=== PATIENT | male | born 1990 | race African-American/Black ===

== ENCOUNTER 2016-12-04 22:55 | Emergency (ER) | payer SELFPAY ==
[2016-12-05] MEDS ORDERED: KETOROLAC TROMETHAMINE INJ/PF 30 MG/1 ML SDV IV ONE (01:37)
[2016-12-05] MEDS ORDERED: DIPHENHYDRAMINE HCL 50 MG/ML VIAL IV ONE (01:38)
[2016-12-05] MEDS ORDERED: PROCHLORPERAZINE EDISYLATE INJ 10 MG/2 ML VIAL IV ONE (01:38)
--- NOTE | 2016-12-05 03:30 | ER Document Report ---
ED General - General Chief Complaint: Headache Stated Complaint: HEADACHE Time Seen by Provider: 12/05/16 01:37 Notes: Patient is a 26-year-old male with past medical history of migraine headaches who presents with 2 days of a bitemporal, constant, throbbing, severe headache. Patient states the headache was gradual in onset and got progressively worse from that time. He has had similar headaches in the past. Notes associated vomiting, photophobia and phonophobia. He has tried naproxen and ibuprofen at home without resolution of his symptoms. He has not seen a primary care doctor regarding today's concerns. He denies any neck pain, fever or altered mental status. No focal weakness or numbness. TRAVEL OUTSIDE OF THE [place] IN LAST 30 DAYS: No - Related Data Allergies/Adverse Reactions: No Known Allergies Allergy (Unverified 12/17/15 19:05) Past Medical History - General Information source: Patient - Social History Smoking Status: Current Every Day Smoker Chew tobacco use (# tins/day): No Frequency of alcohol use: None Drug Abuse: None Lives with: Spouse/Significant other Family History: Reviewed & Not Pertinent Patient has suicidal ideation: No Patient has homicidal ideation: No Renal/ Medical History: Denies: Hx Peritoneal Dialysis Past Surgical History: Reports: Hx Abdominal Surgery - hernia, Hx Herniorrhaphy - Immunizations Immunizations up to date: Yes Hx Diphtheria, Pertussis, Tetanus Vaccination: Yes Review of Systems - Review of Systems Notes: Constitutional: Negative for fever. HENT: Negative for sore throat. Eyes: Negative for visual changes. Cardiovascular: Negative for chest pain. Respiratory: Negative for shortness of breath. Gastrointestinal: Negative for abdominal pain, vomiting or diarrhea. Genitourinary: Negative for dysuria. Musculoskeletal: Negative for back pain. Skin: Negative for rash. Neurological: Positive for headaches, negative for weakness or numbness. 10 point ROS negative except as marked above and in HPI. Physical Exam - Vital signs Vitals: Temp Pulse Resp BP Pulse Ox 98.7 F 56 L 16 115/54 L 97 12/04/16 23:20 12/04/16 23:20 12/04/16 23:20 12/04/16 23:20 12/04/16 23:20 Interpretation: Bradycardic Notes: PHYSICAL EXAMINATION: GENERAL: Well-appearing, well-nourished and in no acute distress. HEAD: Atraumatic, normocephalic. EYES: Pupils equal round and reactive to light, extraocular movements intact, sclera anicteric, conjunctiva are normal. ENT: nares patent, oropharynx clear without exudates. Moist mucous membranes. NECK: Normal range of motion, supple without lymphadenopathy LUNGS: Breath sounds clear to auscultation bilaterally and equal. No wheezes rales or rhonchi. HEART: Regular rate and rhythm without murmurs ABDOMEN: Soft, nontender, normoactive bowel sounds. No guarding, no rebound. No masses appreciated. EXTREMITIES: Normal range of motion, no pitting or edema. No cyanosis. NEUROLOGICAL: Face symmetric. Tongue protrudes midline. Extraocular motions intact. Pupils are 2 mm and equally reactive. Normal speech, normal gait. 5 out of 5 strength in both the distal and proximal upper and lower extremities bilaterally. Sensation is grossly intact throughout. Finger to nose testing normal. Pronator drift normal. PSYCH: Normal mood, normal affect. SKIN: Warm, Dry, normal turgor, no rashes or lesions noted. Course - Re-evaluation Re-evalutation: 12/05/16 03:27 Presentation of a headache that appears to be most consistent with tension versus migrainous type headache. Headache was not maximal in onset, patient has no focal neurologic deficits, no nuchal rigidity, vital signs within normal limits, no papilledema, and patient is overall well in appearance. Based on clinical history and examination I do not suspect an acute subarachnoid hemorrhage, dural venous sinus thrombosis, acute meningitis, or intercranial mass. Given my low clinical suspicion for any acute life-threatening etiology, I do not feel advanced neuro imaging or laboratory testing is indicated at this time. Patient has had complete resolution of his headache after a migraine cocktail. At this time will discharge with return precautions and follow-up recommendations. Verbal discharge instructions given a the bedside and opportunity for questions given. Medication warnings reviewed. Patient is in agreement with this plan and has verbalized understanding of return precautions and the need for primary care follow-up in the next 24-72 hours. - Vital Signs Vital signs: Temp Pulse Resp BP Pulse Ox 98.7 F 56 L 16 115/54 L 97 12/04/16 23:20 12/04/16 23:20 12/04/16 23:20 12/04/16 23:20 12/04/16 23:20 Discharge - Discharge Clinical Impression: Migraine headache Qualifiers: Migraine type: unspecified Status migrainosus presence: with status migrainosus Intractability: not intractable Qualified Code(s): G43.901 - Migraine, unspecified, not intractable, with status migrainosus Condition: Good Disposition: HOME, SELF-CARE Additional Instructions: You were seen today for a migraine headache. Please follow-up with your primary care doctor regarding today's ED visit. Return to emergency department immediately if you develop a headache that gets to its maximum severity within 20 minutes of onset, you pass out, you develop weakness, numbness, changes in your vision, become unable to keep any fluids down for more than 12 hours, or develop a fever greater than 100.4 degrees Fahrenheit. If you develop a similar migraine headache in the future I recommend that you immediately take 600 mg of ibuprofen and 50 mg of Benadryl and go to sleep as quickly as possible. This can often prevent your migraine headache from becoming severe.
[2016-12-05 03:38] VITALS: BP 109/49
== END 2016-12-05 03:41 | disposition home or self-care (01) ==
LOC: ER 22:55
DX: G43.901 Migraine, unspecified, not intractable, with status migrainosus (principal); R11.10 Vomiting, unspecified; H53.149 Visual discomfort, unspecified; R00.1 Bradycardia, unspecified; F17.200 Nicotine dependence, unspecified, uncomplicated
CPT/HCPCS: 99283; 96374; 96375; J1200; J1885; J0780

== ENCOUNTER 2017-05-23 00:53 | Emergency (ER) | payer SELFPAY ==
[2017-05-23 00:59] VITALS: BP 122/66
--- NOTE | 2017-05-23 01:26 | ER Document Report ---
HPI - HPI Patient complains to provider of: Punched a wall Onset: Yesterday - Evening Onset/Duration: Sudden Pain Level: 3 Context: 27-year-old male punched a wall with his right hand because he was an argument with his significant other. He is complaining of pain over the fourth and fifth MP C joint and over the lateral carpal. No previous injury. Associated Symptoms: None Exacerbated by: Movement Relieved by: Denies - ROS ROS below otherwise negative: Yes Systems Reviewed and Negative: Yes All other systems reviewed and negative Past Medical History - General Information source: Patient - Social History Smoking Status: Never Smoker Frequency of alcohol use: None Drug Abuse: None Lives with: Spouse/Significant other Family History: Reviewed & Not Pertinent - Medical History Medical History: Negative Renal/ Medical History: Denies: Hx Peritoneal Dialysis Past Surgical History: Reports: Hx Abdominal Surgery - hernia, Hx Herniorrhaphy - Immunizations Immunizations up to date: Yes Hx Diphtheria, Pertussis, Tetanus Vaccination: Yes Vertical Provider Document - CONSTITUTIONAL Agree With Documented VS: Yes Exam Limitations: No Limitations General Appearance: No Apparent Distress - INFECTION CONTROL TRAVEL OUTSIDE OF THE [place] IN LAST 30 DAYS: No - HEENT HEENT: Normocephalic - NECK Neck: Supple - RESPIRATORY O2 Sat by Pulse Oximetry: 100 - MUSCULOSKELETAL/EXTREMETIES Musculoskeletal/Extremeties: FROM, Tender, Eccymosis - mild over 4th, 5th MCP joints and lateral dorasl hand over carpal Notes: no rotational deviation - NEURO Level of Consciousness: Awake, Alert Motor/Sensory: No Motor Deficit, No Sensory Deficit - DERM Integumentary: Warm, Dry Course - Re-evaluation Re-evalutation: 05/23/17 01:46 Prelim x-ray is negative he will call me in about an hour for the results. 05/23/17 04:03 final xray report is negative. - Vital Signs Vital signs: Temp Pulse Resp BP Pulse Ox 98.6 F 70 16 122/66 100 05/23/17 00:58 05/23/17 00:58 05/23/17 00:58 05/23/17 00:58 05/23/17 00:58 Discharge - Discharge Clinical Impression: Right hand contusion Condition: Good Disposition: HOME, SELF-CARE Instructions: Acetaminophen, Contusion ([facility]), Use of Pyld-Ump-Qanfueh Ibuprofen ([facility]) Additional Instructions: to er any concerns the xray is negative for fracture Forms: Return to Work
--- NOTE | 2017-05-23 02:01 | RADIOLOGY REPORT (SQ) ---
EXAM DESCRIPTION: HAND RIGHT 3 VIEWS CLINICAL HISTORY: injury. Pain. COMPARISON: None. FINDINGS: 3 views of the right hand. Normal osseous mineralization. No acute fracture or dislocation. IMPRESSION: No acute fracture or dislocation.
== END 2017-05-23 02:10 | disposition home or self-care (01) ==
LOC: ER 00:53
DX: S60.221A Contusion of right hand, initial encounter (principal); M79.641 Pain in right hand; W22.01XA Walked into wall, initial encounter
CPT/HCPCS: 99283

== ENCOUNTER 2017-12-04 18:16 | Emergency (ER) | payer SELFPAY ==
--- NOTE | 2017-12-04 18:32 | ER Document Report ---
ED Flu Like - General Chief Complaint: Flu Symptoms Stated Complaint: VOMITING, COUGH, BODY ACHES Time Seen by Provider: 12/04/17 18:25 TRAVEL OUTSIDE OF THE [place] IN LAST 30 DAYS: No - Related Data Allergies/Adverse Reactions: No Known Allergies Allergy (Verified 12/04/17 18:30) Past Medical History - Social History Smoking Status: Current Every Day Smoker Chew tobacco use (# tins/day): No Frequency of alcohol use: None Drug Abuse: None Family History: Reviewed & Not Pertinent Patient has suicidal ideation: No Patient has homicidal ideation: No Renal/ Medical History: Denies: Hx Peritoneal Dialysis Past Surgical History: Reports: Hx Abdominal Surgery - hernia, Hx Herniorrhaphy - Immunizations Immunizations up to date: Yes Hx Diphtheria, Pertussis, Tetanus Vaccination: Yes Physical Exam - Vital signs Vitals: Temp Pulse Resp BP Pulse Ox 101.3 F H 78 24 H 131/53 H 100 12/04/17 18:23 12/04/17 18:23 12/04/17 18:23 12/04/17 18:23 12/04/17 18:23 Course - Vital Signs Vital signs: Temp Pulse Resp BP Pulse Ox 101.3 F H 78 24 H 131/53 H 100 12/04/17 18:23 12/04/17 18:23 12/04/17 18:23 12/04/17 18:23 12/04/17 18:23
[2017-12-04] MEDS ORDERED: ONDANSETRON 4 MG TAB.RAPDIS PO ONE (18:33)
[2017-12-04] MEDS ORDERED: NORMAL SALINE 1000 ML 1,000 ML IV ONE (18:33)
--- NOTE | 2017-12-04 18:33 | ER Document Report ---
ED Medical Screen (RME) - General Chief Complaint: Flu Symptoms Stated Complaint: VOMITING, COUGH, BODY ACHES Time Seen by Provider: 12/04/17 18:25 Mode of Arrival: Ambulatory Information source: Patient Notes: 27-year-old male with complaints of 2-3 days of fevers, sore throat, headache, body aches, cough, and vomiting. Patient states he has vomited up everything he tries to eat and drink over the last 2 or 3 days. Patient states he is taking ibuprofen for the fever but denies taking any other medications. I have greeted and performed a rapid initial assessment of this patient. A comprehensive ED assessment and evaluation of the patient, analysis of test results, and completion of the medical decision making process will be conducted by additional ED providers. Review of systems: Positive for fevers, generalized body aches, sore throat, headache, cough, vomiting. Physical Exam: General: Alert, appears mildly uncomfortable. HEENT: Normocephalic. Atraumatic. PERRLA. Extraocular movements intact. Oropharynx clear. Posterior oropharynx erythema and tonsillar hypertrophy. Neck: Supple. Respiratory: No respiratory distress. Dry cough. Clear and equal breath sounds bilaterally. Abdominal: Normal Inspection. No distension. Extremities: Moves all four extremities. Neurological: Normal cognition. AAOx4. Normal speech. Psychological: Normal affect. Normal Mood. Skin: Warm. Dry. Normal color. TRAVEL OUTSIDE OF THE [place] IN LAST 30 DAYS: No - Related Data Allergies/Adverse Reactions: No Known Allergies Allergy (Verified 12/04/17 18:30) Past Medical History - Social History Chew tobacco use (# tins/day): No Frequency of alcohol use: None Drug Abuse: None Family history: Reviewed & Not Pertinent Renal/ Medical History: Denies: Hx Peritoneal Dialysis Past Surgical History: Reports: Hx Abdominal Surgery - hernia, Hx Herniorrhaphy - Immunizations Immunizations up to date: Yes Hx Diphtheria, Pertussis, Tetanus Vaccination: Yes Physical Exam - Vital signs Vitals: Temp Pulse Resp BP Pulse Ox 101.3 F H 78 24 H 131/53 H 100 12/04/17 18:23 12/04/17 18:23 12/04/17 18:23 12/04/17 18:23 12/04/17 18:23 Course - Vital Signs Vital signs: Temp Pulse Resp BP Pulse Ox 101.3 F H 78 24 H 131/53 H 100 12/04/17 18:23 12/04/17 18:23 12/04/17 18:23 12/04/17 18:23 12/04/17 18:23
[2017-12-04 18:34] VITALS: BP 131/53
[2017-12-04] MEDS ORDERED: ACETAMINOPHEN 325 MG TABLET PO ONE (18:34)
--- NOTE | 2017-12-04 18:51 | RADIOLOGY REPORT (SQ) ---
EXAM DESCRIPTION: CHEST 2 VIEWS COMPLETED DATE/TIME: 12/04/2017 6:42 pm REASON FOR STUDY: cough, congestion COMPARISON: None. EXAM PARAMETERS: NUMBER OF VIEWS: two views TECHNIQUE: Digital Frontal and Lateral radiographic views of the chest acquired. RADIATION DOSE: NA LIMITATIONS: none FINDINGS: LUNGS AND PLEURA: No opacities, masses or pneumothorax. No pleural effusion. MEDIASTINUM AND HILAR STRUCTURES: No masses or contour abnormalities. HEART AND VASCULAR STRUCTURES: Heart normal size. No evidence for failure. BONES: No acute findings. HARDWARE: None in the chest. OTHER: No other significant finding. IMPRESSION: NO ACUTE RADIOGRAPHIC FINDING IN THE CHEST. TECHNICAL DOCUMENTATION: JOB ID: [id number] [employer]- All Rights Reserved Reading location - IP/workstation name: [email or web address]
--- NOTE | 2017-12-04 19:37 | ER Document Report ---
ED Flu Like - General TRAVEL OUTSIDE OF THE [place] IN LAST 30 DAYS: No <KING IRVIN - Last Filed: 12/04/17 19:38> <SHAHRIAR MITCHELL - Last Filed: 12/08/17 18:32> - General Chief Complaint: Flu Symptoms Stated Complaint: VOMITING, COUGH, BODY ACHES Time Seen by Provider: 12/04/17 18:25 Notes: 27-year-old male with complaints of 2-3 days of fevers, sore throat, headache, body aches, cough, and vomiting. Patient states he has vomited up everything he tries to eat and drink over the last 2 or 3 days. Patient states he is taking ibuprofen for the fever but denies taking any other medications. (KING IRVIN) - Related Data Allergies/Adverse Reactions: No Known Allergies Allergy (Verified 12/04/17 18:30) Past Medical History - General Information source: Patient - Social History Smoking Status: Current Every Day Smoker Cigarette use (# per day): Yes Chew tobacco use (# tins/day): No Frequency of alcohol use: None Drug Abuse: None Family History: Reviewed & Not Pertinent Patient has suicidal ideation: No Patient has homicidal ideation: No Renal/ Medical History: Denies: Hx Peritoneal Dialysis Past Surgical History: Reports: Hx Abdominal Surgery - hernia, Hx Herniorrhaphy - Immunizations Immunizations up to date: Yes Hx Diphtheria, Pertussis, Tetanus Vaccination: Yes <KING IRVIN - Last Filed: 12/04/17 19:38> Review of Systems - Review of Systems Constitutional: See HPI, Fever EENT: No symptoms reported Cardiovascular: No symptoms reported Respiratory: See HPI, Cough, Short of breath Gastrointestinal: No symptoms reported Genitourinary: No symptoms reported Male Genitourinary: No symptoms reported Musculoskeletal: See HPI, Muscle pain, Muscle stiffness Skin: No symptoms reported Hematologic/Lymphatic: No symptoms reported Neurological/Psychological: No symptoms reported -: Yes All other systems reviewed and negative <KING IRVIN - Last Filed: 12/04/17 19:38> Physical Exam <KING IRVIN - Last Filed: 12/04/17 19:38> <SHAHRIAR MITCHELL - Last Filed: 12/08/17 18:32> - Vital signs Vitals: Temp Pulse Resp BP Pulse Ox 101.3 F H 78 24 H 131/53 H 100 12/04/17 18:23 12/04/17 18:23 12/04/17 18:23 12/04/17 18:23 12/04/17 18:23 - Notes Notes: Physical Exam: General: Alert, appears mildly uncomfortable. HEENT: Normocephalic. Atraumatic. PERRLA. Extraocular movements intact. Oropharynx clear. Posterior oropharynx erythema and tonsillar hypertrophy. Neck: Supple. Respiratory: No respiratory distress. Dry cough. Clear and equal breath sounds bilaterally. Abdominal: Normal Inspection. No distension. Extremities: Moves all four extremities. Neurological: Normal cognition. AAOx4. Normal speech. Psychological: Normal affect. Normal Mood. Skin: Warm. Dry. Normal color. (KING IRVIN) Course <KING IRVIN - Last Filed: 12/04/17 19:38> - Laboratory Result Diagrams: 12/04/17 19:27 12/04/17 19:27 <SHAHRIAR MITCHELL - Last Filed: 12/08/17 18:32> - Re-evaluation Re-evalutation: 12/04/17 20:42 Patient x-ray shows no acute findings. Valenza and strep swab negative. Patient has been having upper respiratory congestion and cough. He also presented with a fever. Tylenol was provided. Patient otherwise is well- appearing does not have a white cell count. His CMP hemolyzed twice. Due to wait and watching patient for several hours he did not decompensate and he looked well for discharge therefore canceled his CMP after talking the lab. Patient will be placed on 7 days of doxycycline due to fever and concern for morbid bacterial upper respiratory infection. Return precautions provided (SHAHRIAR MITCHELL) - Vital Signs Vital signs: Temp Pulse Resp BP Pulse Ox 101.3 F H 78 24 H 131/53 H 100 12/04/17 18:23 12/04/17 18:23 12/04/17 18:23 12/04/17 18:23 12/04/17 18:23 - Laboratory Laboratory results interpreted by me: 12/04/17 19:27 RBC 5.56 H MCV 73 L MCH 24.6 L RDW 14.6 H Seg Neutrophils % 79.7 H Lymphocytes % 9.5 L Discharge <KING IRVIN - Last Filed: 12/04/17 19:38> <SHAHRIAR MITCHELL - Last Filed: 12/08/17 18:32> - Discharge Clinical Impression: Acute pharyngitis Qualifiers: Pharyngitis/tonsillitis etiology: unspecified etiology Qualified Code(s): J02.9 - Acute pharyngitis, unspecified Condition: Good Disposition: HOME, SELF-CARE Instructions: Upper Respiratory Illness ([facility]) Prescriptions: Doxycycline Hyclate 100 mg PO BID #14 capsule Ibuprofen/Pseudoephedrine HCl [Advil Cold & Sinus Caplet] 1 each PO TID PRN #1 packet PRN Reason: Forms: Return to Work Referrals: [facility] [NO LOCAL MD] - Follow up as needed Scribe Attestation: 12/08/17 18:32 I personally performed the services described documentation, reviewed and edited the documentation which was dictated to describe my presence, and it accurately records my words and actions. (SHAHRIAR MITCHELL) Scribe Documentation - Scribe Written by Joel:: Joel Sharif, 12/04/2017 1938 acting as scribe for :: Jeb <KING IRVIN - Last Filed: 12/04/17 19:38>
[2017-12-04 19:41] LABS: A TYPE INFLUENZA AG NEGATIVE (NEGATIVE); B INFLUENZA AG NEGATIVE (NEGATIVE)
[2017-12-04 19:46] LABS: ABSOLUTE LYMPHOCYTES (AUTO) 0.6 10^3/uL (0.5-4.7); ABSOLUTE MONOCYTES (AUTO) 0.6 10^3/uL (0.1-1.4); BASOPHILS % (AUTO) 0.6 % (0-2); EOSINOPHILS % (AUTO) 0.7 % (0-6); HEMATOCRIT 40.6 % (37.9-51.0); HEMOGLOBIN 13.7 g/dL (13.5-17.0); LYMPHOCYTES % (AUTO) 9.5 % (13-45); MEAN CORPUSCULAR HEMOGLOBIN 24.6 pg (27.0-33.4); MEAN CORPUSCULAR HGB CONC 33.7 g/dL (32.0-36.0); MEAN CORPUSCULAR VOLUME 73 fl (80-97); MONOCYTES % (AUTO) 9.5 % (3-13); PLATELET COUNT 182 10^3/uL (150-450); RED BLOOD COUNT 5.56 10^6/uL (4.35-5.55); RED CELL DISTRIBUTION WIDTH 14.6 % (11.5-14.0); SEGMENTED NEUTROPHILS % (AUTO) 79.7 % (42-78); TOTAL CELLS COUNTED % (AUTO) 100 %; WHITE BLOOD COUNT 6.3 10^3/uL (4.0-10.5)
== END 2017-12-05 03:14 | disposition home or self-care (01) ==
LOC: ER 18:16
DX: J02.9 Acute pharyngitis, unspecified (principal); R50.9 Fever, unspecified; R51 Headache; R05 Cough; R11.10 Vomiting, unspecified; R06.02 Shortness of breath; M79.1 Myalgia; R09.89 Other specified symptoms and signs involving the circulatory and respiratory systems; F17.210 Nicotine dependence, cigarettes, uncomplicated
CPT/HCPCS: 99283; 96360; 36415; 87070; 87880; 85025; 87804; 71046; S0119; J7030

== ENCOUNTER 2018-05-10 11:25 | Emergency (ER) | payer OTHER ==
[2018-05-10] MEDS ORDERED: LIDOCAINE 4%/TETRACAINE 0.5%/EPI 0.18% 5 ML TOPICAL SOLN TOP ONE (12:36)
--- NOTE | 2018-05-10 12:37 | ER Document Report ---
ED General - General Chief Complaint: Laceration Stated Complaint: FINGER LACERATION Time Seen by Provider: 05/10/18 12:23 Mode of Arrival: Ambulatory Information source: Patient TRAVEL OUTSIDE OF THE [place] IN LAST 30 DAYS: No - HPI Patient complains to provider of: Finger pain Onset: Other - Otherwise healthy 28-year-old man the presents for evaluation of a laceration involving the distal tip of his left thumb which happened while he was at work today trying to cut a sandwich. Denies any injuries elsewhere denies any significant past health problems has had a recent tetanus booster within the last 5 years. - Related Data Allergies/Adverse Reactions: No Known Allergies Allergy (Verified 05/10/18 11:28) Past Medical History - General Information source: Patient - Social History Smoking Status: Current Every Day Smoker Chew tobacco use (# tins/day): No Frequency of alcohol use: Social Drug Abuse: None Family History: Reviewed & Not Pertinent Patient has suicidal ideation: No Patient has homicidal ideation: No Renal/ Medical History: Denies: Hx Peritoneal Dialysis Past Surgical History: Reports: Hx Abdominal Surgery - hernia, Hx Herniorrhaphy - Immunizations Immunizations up to date: Yes Hx Diphtheria, Pertussis, Tetanus Vaccination: Yes Review of Systems - Review of Systems -: Yes All other systems reviewed and negative Physical Exam - Vital signs Vitals: Temp Pulse Resp BP Pulse Ox 97.7 F 73 14 148/70 H 100 05/10/18 11:37 05/10/18 11:37 05/10/18 11:37 05/10/18 11:37 05/10/18 11:37 - General General appearance: Appears well, Alert - Respiratory Respiratory status: No respiratory distress Chest status: Nontender Breath sounds: Normal Chest palpation: Normal - Cardiovascular Rhythm: Regular Heart sounds: Normal auscultation Murmur: No - Abdominal Inspection: Normal Distension: No distension Bowel sounds: Normal Tenderness: Nontender Organomegaly: No organomegaly - Back Back: Normal, Nontender - Extremities General lower extremity: Normal inspection, Nontender, Normal color, Normal ROM , Normal temperature, Normal weight bearing. No: Rosi's sign Hand: Other - The left hand is grossly normal in appearance, there is brisk capillary refill in all 5 digits The radial aspect of the left thumb demonstrates a small flap of avulsed skin just distal to the nail bed which does not involve the underlying bone - Neurological Neuro grossly intact: Yes Cognition: Normal Orientation: AAOx4 [place] Coma Scale Eye Opening: Spontaneous [place] Coma Scale Verbal: Oriented [place] Coma Scale Motor: Obeys Commands [place] Coma Scale Total: 15 Speech: Normal Motor strength normal: LUE, RUE, LLE, RLE Sensory: Normal Course - Re-evaluation Re-evalutation: 05/10/18 17:18 28-year-old man with a flap-like laceration over the left thumb. Does not involve the deep structures. Has had a tetanus booster will plan for primary repair, did offer stitches and glue patient prefers to do a trial of glue as he is very afraid of stitches. Applied let topically and subsequently repaired the patient's flap utilizing Dermabond with a reasonable outcome of hemostasis and approximation achieved. He was given return precautions and follow-up instructions on how to care for the wound. - Vital Signs Vital signs: Temp Pulse Resp BP Pulse Ox 98.3 F 56 L 19 120/68 100 05/10/18 14:27 05/10/18 14:27 05/10/18 14:27 05/10/18 14:27 05/10/18 14:27 Procedures - Laceration/Wound Repair Left Thumb Wound length (cm): 1 Wound's Depth, Shape: Superficial Anesthetic type: 1% Lidocaine w/epi Wound explored: Clean Wound Debrided: Minimal Wound Repaired With: Dermabond Layer Closure?: No Discharge - Discharge Clinical Impression: Laceration Finger injury Qualifiers: Encounter type: initial encounter Laterality: left Qualified Code(s): S69.92XA - Unspecified injury of left wrist, hand and finger(s), initial encounter Condition: Good Disposition: HOME, SELF-CARE Instructions: Laceration Care ([facility]), Soap Cleansing ([facility]) Additional Instructions: You were seen today in the emergency department for your finger laceration. You had an evaluation including a physical exam and a repair of the wound for your finger. Continue to keep this covered, keep it dry for the next day, wear gloves while you are working with food. You can use normal soap and water to clean this after 2 days. Follow-up with your primary doctor for a wound check in the next week. Forms: Return to Work
[2018-05-10 14:28] VITALS: BP 120/68
== END 2018-05-10 14:27 | disposition home or self-care (01) ==
LOC: ER 11:25
DX: S61.012A Laceration without foreign body of left thumb without damage to nail, initial encounter (principal); W26.0XXA Contact with knife, initial encounter; Y93.G1 Activity, food preparation and clean up; Y99.0 Civilian activity done for income or pay; F17.200 Nicotine dependence, unspecified, uncomplicated
CPT/HCPCS: 99282

== ENCOUNTER 2019-01-29 04:37 | Emergency (ER) | payer SELFPAY ==
[2019-01-29 05:06] LABS: ABSOLUTE LYMPHOCYTES (AUTO) 0.8 10^3/uL (0.5-4.7); ABSOLUTE MONOCYTES (AUTO) 0.5 10^3/uL (0.1-1.4); ABSOLUTE NEUT (AUTO) 4.6 10^3/uL (1.7-8.2); BASOPHILS % (AUTO) 0.5 % (0-2); EOSINOPHILS % (AUTO) 0.1 % (0-6); HEMATOCRIT 40.2 % (37.9-51.0); HEMOGLOBIN 13.1 g/dL (13.5-17.0); LYMPHOCYTES % (AUTO) 13.8 % (13-45); MEAN CORPUSCULAR HEMOGLOBIN 24.4 pg (27.0-33.4); MEAN CORPUSCULAR HGB CONC 32.5 g/dL (32.0-36.0); MEAN CORPUSCULAR VOLUME 75 fl (80-97); MONOCYTES % (AUTO) 7.7 % (3-13); PLATELET COUNT 195 10^3/uL (150-450); RED BLOOD COUNT 5.35 10^6/uL (4.35-5.55); RED CELL DISTRIBUTION WIDTH 15.5 % (11.5-14.0); SEGMENTED NEUTROPHILS % (AUTO) 77.9 % (42-78); TOTAL CELLS COUNTED % (AUTO) 100 %; WHITE BLOOD COUNT 5.9 10^3/uL (4.0-10.5)
[2019-01-29 05:26] LABS: APPEARANCE,URINE CLEAR; BILIRUBIN,URINE NEGATIVE (NEGATIVE); COLOR,URINE STRAW; GLUCOSE, URINE NEGATIVE (NEGATIVE); KETONES,URINE TRACE mg/dL (NEGATIVE); LEUKOCYTE ESTERASE,URINE NEGATIVE (NEGATIVE); NITRITE,URINE NEGATIVE (NEGATIVE); PROTEIN,URINE 30 mg/dL (NEGATIVE); URINE SPECIFIC GRAVITY 1.005; UROBILINOGEN,URINE NEGATIVE mg/dL (<2.0)
[2019-01-29 05:32] LABS: URINE AMPHETAMINES SCREEN NEGATIVE; URINE BARBITURATES SCREEN NEGATIVE; URINE BENZODIAZEPINES SCREEN NEGATIVE; URINE COCAINE SCREEN NEGATIVE; URINE MARIJUANA (THC) SCREEN UNCONFIRMED POSITIVE; URINE METHADONE SCREEN NEGATIVE; URINE PHENCYCLIDINE SCREEN NEGATIVE
[2019-01-29 05:35] LABS: ALBUMIN 4.3 g/dL (3.5-5.0); ALCOHOL 80 mg/dL (NONE DETECTED); ALKALINE PHOSPHATASE 61 U/L (38-126); ASPARTATE AMINO TRANSFERASE 31 U/L (17-59); BILIRUBIN,DIRECT 0.3 mg/dL (0.0-0.4); BILIRUBIN,TOTAL 0.4 mg/dL (0.2-1.3); BLOOD UREA NITROGEN 16 mg/dL (7-20); CALCIUM 10.4 mg/dL (8.4-10.2); GLUCOSE 109 mg/dL (75-110); POTASSIUM 3.4 mmol/L (3.6-5.0); SALICYLATE 4.1 mg/dL (2.0-20.0); TOTAL PROTEIN 7.3 g/dL (6.3-8.2)
[2019-01-29 05:39] LABS: CARBON DIOXIDE 15 mmol/L (22-30); CHLORIDE 101 mmol/L (98-107)
[2019-01-29 05:50] LABS: ACETAMINOPHEN < 10 ug/mL (10-30); ANION GAP 21 (5-19)
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
--- NOTE | 2019-01-29 07:44 | RADIOLOGY REPORT (SQ) ---
EXAM: CT head without IV contrast CLINICAL DATA: ETOH fall, hit back of head against wall TECHNICAL DATA: Multiple axial CT images of the brain were performed followed by sagittal and coronal reconstructed images. The CT study is performed according to ALARA (as low as reasonably achievable) or ALARA/IMAGE GENTLY, with automatic adjustment of mA and/or kV according to patient size. Performed on: 01/29/2019 at 7:06 AM Comparisons: None. FINDINGS: There is no evidence of mass, acute mass effect or midline shift. There are no acute extra-axial fluid collections. There is no evidence of acute intracranial hemorrhage. The cerebral sulci and ventricles are normal in size and configuration. There are no focal abnormal areas of increased or decreased attenuation. There is no significant mucosal thickening of the paranasal sinuses. The mastoid air cells are clear. The orbital contents are grossly unremarkable. No acute osseous abnormalities are identified. No focal soft tissue abnormalities are identified. IMPRESSION: 1. There is no evidence of acute intracranial pathology.
--- NOTE | 2019-01-29 09:33 | EKG REPORT ---
SEVERITY:- OTHERWISE NORMAL ECG - SINUS RHYTHM BORDERLINE RIGHT AXIS DEVIATION : Confirmed by: Marie Galaviz MD 29-Jan-2019 09:32:04
[2019-01-29 11:48] VITALS: BP 122/69
== END 2019-01-29 15:07 | disposition home or self-care (01) ==
LOC: ER 04:37
DX: F10.920 Alcohol use, unspecified with intoxication, uncomplicated (principal); F12.10 Cannabis abuse, uncomplicated; F43.0 Acute stress reaction; S09.90XA Unspecified injury of head, initial encounter; W01.0XXA Fall on same level from slipping, tripping and stumbling without subsequent striking against object, initial encounter; Y92.238 Other place in hospital as the place of occurrence of the external cause
CPT/HCPCS: 36415; 70450; 80053; 80307; 81001; 85025; 93005; 93010; 99284

== ENCOUNTER 2020-01-22 14:17 | Emergency (ER) | payer SELFPAY ==
[2020-01-22 14:25] VITALS: BP 142/74
[2020-01-22] MEDS ORDERED: MUPIROCIN 2% OINTMENT 22 GM TP ONE (15:20)
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
== END 2020-01-22 15:26 | disposition home or self-care (01) ==
LOC: ER 14:17
DX: L08.9 Local infection of the skin and subcutaneous tissue, unspecified (principal); R21 Rash and other nonspecific skin eruption; F17.200 Nicotine dependence, unspecified, uncomplicated; F12.10 Cannabis abuse, uncomplicated
CPT/HCPCS: 99283; 87070; 87205; J3490